=== PATIENT | female | born 1955 | race Caucasian/White ===

== ENCOUNTER → 2016-03-25 | Outpatient (CLI) | payer OTHER ==
[~2016-03-25] MED LIST: AMIODARONE PO; CALCIUM + D 6001 TA1 PO; COLESTID 1GM1 G PO; FISH OIL SUPER1 SGL PO; HCTZ/LISINOPRIL1 TA1 PO; METOPROLOL SUC100 M2 PO; NORVASC 5MG5 MG/TAB PO; PREVACID 30MG30 M1 PO; PREVACID15 M1 PO; PRINIVIL20 M1 PO; SOTALOL80 MG PO; TIKOSYN0.25 MG PO; WARFARIN SOD5 MG PO
== END ==
LOC: RAD 15:03
DX: M79.671 Pain in right foot (principal); M77.31 Calcaneal spur, right foot

== ENCOUNTER 2016-04-13 12:45 | Outpatient (RCR) | payer OTHER ==
[2015-01-24 16:22] VITALS: BP 128/73
== END 2016-06-05 15:03 | disposition home or self-care (01) ==
LOC: PT 12:45
DX: M79.671 Pain in right foot (principal)

== ENCOUNTER → 2016-05-20 | Outpatient (CLI) | payer OTHER ==
[2015-01-24 16:22] VITALS: BP 128/73
== END ==
LOC: LAB 09:57
DX: I48.91 Unspecified atrial fibrillation (principal)

== ENCOUNTER → 2016-05-22 | Outpatient (CLI) | payer OTHER ==
[2015-01-24 16:22] VITALS: BP 128/73
== END ==
LOC: RAD 09:34
DX: I48.91 Unspecified atrial fibrillation (principal)

== ENCOUNTER → 2017-01-08 | Outpatient (CLI) | payer OTHER ==
[~2017-01-08] VITALS: Ht 162.6 cm; Wt 100.0 kg
[~2017-01-08] MED LIST changes: +PRINIVIL10 M1 PO; -PRINIVIL20 M1 PO; +TIKOSYN0.5 MG PO
[2017-01-08 09:15] VITALS: BP 143/70
== END ==
LOC: AMSURD 09:09
DX: I48.0 Paroxysmal atrial fibrillation (principal)

== ENCOUNTER 2017-02-08 10:36 | Emergency (ER) | payer OTHER ==
[2017-02-08 11:08] VITALS: BP 124/77
[2017-02-08] MEDS ORDERED: AMOXICILLIN875 MG PO (11:40)
== END 2017-02-08 11:56 | disposition home or self-care (01) ==
LOC: ED 10:36
DX: J02.0 Streptococcal pharyngitis (principal); I48.91 Unspecified atrial fibrillation; I10 Essential (primary) hypertension; Z88.1 Allergy status to other antibiotic agents; Z88.5 Allergy status to narcotic agent; Z79.01 Long term (current) use of anticoagulants

== ENCOUNTER 2017-04-30 06:30 | Emergency (ER) | payer OTHER ==
[~2017-04-30] VITALS: Ht 162.6 cm; Wt 93.6 kg
[~2017-04-30 06:30] MED LIST changes: +AMOXICILLIN875 MG PO
[2017-04-30 07:47] LABS: HEMATOCRIT 39.5 % (37.0-47.0); MEAN CELL VOLUME 83 fl (78-100); MEAN CORPUSCULAR HEMOGLOBIN 27 pg (27-31); MEAN CORPUSCULAR HGB CONC 33 g/dL (33-37); PLATELET COUNT 255 K/mm3 (130-400); RED BLOOD COUNT 4.75 M/mm3 (4.10-5.30); RED CELL DISTRIBUTION WIDTH 14.3 % (11.5-14.5); WHITE BLOOD COUNT 6.2 K/mm3 (4.8-10.8)
[2017-04-30 07:48] LABS: ALBUMIN 3.9 g/dL (3.5-5.0); BUN/CREATININE RATIO 16.1 (6.0-26.0); CALCIUM 9.2 mg/dL (8.4-10.2); MEAN PLATELET VOLUME 12.4 fl (7.4-10.4); TOTAL BILIRUBIN 0.4 mg/dL (0.2-1.3); TOTAL PROTEIN 7.4 g/dL (6.3-8.2)
[2017-04-30 07:51] LABS: CKMB ISOENZYME 0.2 ng/mL (0.6-3.5)
[2017-04-30 07:56] LABS: TROPONIN-I < 0.03 ng/mL (0.00-0.06)
[2017-04-30 07:57] LABS: LYMPHOCYTE 32 % (20-51); MONOCYTE 10 % (3-10); NEUTROPHILS 55 % (42-75)
[2017-04-30] MEDS ORDERED: DRAMAMINE LESS25 MG PO (09:53)
[2017-04-30 10:11] VITALS: BP 138/56
== END 2017-04-30 10:12 | disposition home or self-care (01) ==
LOC: ED 06:30
PROVIDERS: Nurse Practitioner Family
DX: R42 Dizziness and giddiness (principal); I10 Essential (primary) hypertension; I48.91 Unspecified atrial fibrillation; K21.9 Gastro-esophageal reflux disease without esophagitis; J02.0 Streptococcal pharyngitis; Z88.1 Allergy status to other antibiotic agents; Z88.5 Allergy status to narcotic agent; Z79.01 Long term (current) use of anticoagulants

== ENCOUNTER → 2017-06-16 | Outpatient (CLI) | payer OTHER ==
[~2017-06-16] MED LIST changes: +DRAMAMINE LESS25 MG PO
== END ==
LOC: LAB 09:53
DX: Z13.6 Encounter for screening for cardiovascular disorders (principal); I10 Essential (primary) hypertension; I48.0 Paroxysmal atrial fibrillation

== ENCOUNTER → 2018-01-20 | Outpatient (CLI) | payer OTHER ==
[~2018-01-20] VITALS: Ht 162.6 cm; Wt 93.6 kg
[2018-01-20 11:55] VITALS: BP 145/66
== END ==
LOC: RAD 11:40
DX: I51.7 Cardiomegaly (principal); K44.9 Diaphragmatic hernia without obstruction or gangrene; R07.9 Chest pain, unspecified

== ENCOUNTER → 2018-02-11 | Outpatient (CLI) | payer OTHER ==
[2018-01-20 11:55] VITALS: BP 145/66
== END ==
LOC: LAB 08:44
DX: N95.2 Postmenopausal atrophic vaginitis (principal); R39.15 Urgency of urination

== ENCOUNTER → 2018-05-03 | Outpatient (CLI) | payer OTHER ==
[2018-01-20 11:55] VITALS: BP 145/66
[2018-05-04 08:35] LABS: CALCIUM 9.5 mg/dL (8.4-10.2); POTASSIUM 4.3 mmol/L (3.6-5.0)
== END ==
LOC: LAB 07:18
PROVIDERS: Family Medicine
DX: I10 Essential (primary) hypertension (principal)

== ENCOUNTER → 2018-06-07 | Outpatient (CLI) | payer MEDICARE ==
[2018-01-20 11:55] VITALS: BP 145/66
[2018-06-07 10:58] LABS: ALBUMIN 4.8 g/dL (3.5-5.0); DIRECT BILIRUBIN 0.2 mg/dL (0.0-0.4); TOTAL BILIRUBIN 0.6 mg/dL (0.2-1.3); TOTAL PROTEIN 8.3 g/dL (6.3-8.2)
== END ==
LOC: LAB 09:26
PROVIDERS: Family Medicine
DX: I10 Essential (primary) hypertension (principal)

== ENCOUNTER → 2018-06-21 | Outpatient (CLI) | payer MEDICARE ==
[2018-01-20 11:55] VITALS: BP 145/66
== END ==
LOC: RAD 08:25 → MAMMO 09:15
DX: Z13.820 Encounter for screening for osteoporosis (principal); M81.0 Age-related osteoporosis without current pathological fracture

== ENCOUNTER → 2018-11-01 | Outpatient (CLI) | payer MEDICARE ==
[2018-01-20 11:55] VITALS: BP 145/66
== END ==
LOC: RAD 07:19
DX: M17.12 Unilateral primary osteoarthritis, left knee (principal); K21.9 Gastro-esophageal reflux disease without esophagitis

== ENCOUNTER → 2019-01-25 | Outpatient (CLI) | payer MEDICARE ==
[2018-01-20 11:55] VITALS: BP 145/66
[2019-01-25 15:32] LABS: HEMATOCRIT 42.6 % (37.0-47.0); MEAN CELL VOLUME 84 fl (78-100); MEAN CORPUSCULAR HEMOGLOBIN 28 pg (27-31); MEAN CORPUSCULAR HGB CONC 33 g/dL (33-37); PLATELET COUNT 211 K/mm3 (130-400); RED BLOOD COUNT 5.05 M/mm3 (4.10-5.30); RED CELL DISTRIBUTION WIDTH 13.9 % (11.5-14.5); WHITE BLOOD COUNT 5.2 K/mm3 (4.8-10.8)
[2019-01-25 15:40] LABS: POTASSIUM 3.8 mmol/L (3.5-5.1)
[2019-01-25 15:41] LABS: CALCIUM 9.1 mg/dL (8.3-10.5)
[2019-01-25 15:54] LABS: MEAN PLATELET VOLUME 12.2 fl (7.4-10.4)
[2019-01-25 15:55] LABS: URINE APPEARANCE HAZY; URINE BILIRUBIN NEGATIVE (NEGATIVE); URINE BLOOD TRACE (NEGATIVE); URINE COLOR YELLOW; URINE GLUCOSE NEGATIVE (NEGATIVE); URINE KETONE NEGATIVE (NEGATIVE); URINE LEUKOCYTE ESTERASE 1+ (NEGATIVE); URINE NITRATE NEGATIVE (NEGATIVE); URINE PROTEIN(semi-quant) TRACE mg/dL (NEGATIVE); URINE UROBILINOGEN NORMAL (NORMAL)
[2019-01-25 15:56] LABS: URINE MUCUS PRESENT (NOT PRESENT)
[2019-01-25 15:57] LABS: LYMPHOCYTE 32 % (20-51); MONOCYTE 14 % (3-10); NEUTROPHILS 52 % (42-75)
== END ==
LOC: LAB 14:16
PROVIDERS: Family Medicine
DX: I48.91 Unspecified atrial fibrillation (principal); R11.2 Nausea with vomiting, unspecified; R19.7 Diarrhea, unspecified

== ENCOUNTER → 2019-02-06 | Outpatient (CLI) | payer MEDICARE ==
[2018-01-20 11:55] VITALS: BP 145/66
== END ==
LOC: RAD 15:51
DX: M76.01 Gluteal tendinitis, right hip (principal); R10.2 Pelvic and perineal pain; Z98.890 Other specified postprocedural states

== ENCOUNTER → 2019-03-10 | Outpatient (CLI) | payer MEDICARE ==
[2018-01-20 11:55] VITALS: BP 145/66
== END ==
LOC: RAD 07:50
DX: R93.5 Abnormal findings on diagnostic imaging of other abdominal regions, including retroperitoneum (principal)

== ENCOUNTER → 2019-06-20 | Outpatient (CLI) | payer MEDICARE ==
[2018-01-20 11:55] VITALS: BP 145/66
== END ==
LOC: RAD 06:52
DX: M48.061 Spinal stenosis, lumbar region without neurogenic claudication (principal); M47.816 Spondylosis without myelopathy or radiculopathy, lumbar region; M43.16 Spondylolisthesis, lumbar region; M43.17 Spondylolisthesis, lumbosacral region; M53.87 Other specified dorsopathies, lumbosacral region; M54.31 Sciatica, right side; M71.38 Other bursal cyst, other site

== ENCOUNTER 2019-08-23 13:00 | Outpatient (RCR) | payer MEDICARE ==
[2018-01-20 11:55] VITALS: BP 145/66
== END 2019-08-23 13:30 | disposition still patient (30) ==
LOC: PT 13:00
DX: M53.3 Sacrococcygeal disorders, not elsewhere classified (principal); M54.16 Radiculopathy, lumbar region; M47.817 Spondylosis without myelopathy or radiculopathy, lumbosacral region; G89.4 Chronic pain syndrome

== ENCOUNTER → 2019-12-28 | Outpatient (CLI) | payer MEDICARE ==
[2018-01-20 11:55] VITALS: BP 145/66
== END ==
LOC: LAB 13:13
DX: R05 Cough (principal); R68.83 Chills (without fever); M79.10 Myalgia, unspecified site; R53.83 Other fatigue; Z20.828 Contact with and (suspected) exposure to other viral communicable diseases

== ENCOUNTER → 2021-12-09 | Outpatient (CLI) | payer MEDICARE | LOC: MAMMO 07:43 | DX: Z00.00 Encounter for general adult medical examination without abnormal findings (principal); Z12.11 Encounter for screening for malignant neoplasm of colon; Z23 Encounter for immunization; M81.0 Age-related osteoporosis without current pathological fracture ==

== ENCOUNTER → 2021-12-09 | Outpatient (CLI) | payer MEDICARE | LOC: MAMMO 07:40 | DX: Z12.31 Encounter for screening mammogram for malignant neoplasm of breast (principal); Z00.00 Encounter for general adult medical examination without abnormal findings; Z12.11 Encounter for screening for malignant neoplasm of colon; Z23 Encounter for immunization ==

== ENCOUNTER → 2022-12-28 | Outpatient (CLI) | payer MEDICARE ==
[2018-01-20 11:55] VITALS: BP 145/66
[~2022-12-28] MED LIST changes: +ACETAMINOPHEN500 M7 PO; +AMOXICILLIN AND1 TA2 PO; +COLESTIPOL HYDRO1 GM PO; +DILTIAZEM 24HR120 M2 PO; +DOFETILIDE500 MCG PO; +MOTION SICKNESS25 M5 PO; +NEXIUM20 MG PO
== END ==
LOC: MAMMO 08:38
DX: Z12.31 Encounter for screening mammogram for malignant neoplasm of breast (principal)

== ENCOUNTER → 2023-05-04 | Outpatient (REF) | payer MEDICARE | LOC: LAB 15:08 | DX: N39.0 Urinary tract infection, site not specified (principal) ==

== ENCOUNTER → 2023-10-02 | Outpatient (CLI) | payer MEDICARE | LOC: RAD 10:10 | DX: M19.071 Primary osteoarthritis, right ankle and foot (principal); M77.31 Calcaneal spur, right foot; Z98.890 Other specified postprocedural states ==

== ENCOUNTER → 2024-01-17 | Outpatient (CLI) | payer MEDICARE | LOC: MAMMO 09:04 | DX: Z12.31 Encounter for screening mammogram for malignant neoplasm of breast (principal) ==